=== PATIENT | male | born 1970 | race African-American/Black ===

== ENCOUNTER 2016-12-26 11:19 | Emergency (ER) | payer SELFPAY ==
[~2016-12-26] VITALS: Ht 167.6 cm; Wt 87.0 kg
[2016-12-26 11:20] VITALS: BP 142/86; PULSE 86; RESP 20; TEMP 98.5; O2SAT 97
--- NOTE | 2016-12-26 11:46 | PD ---
HPI . left eye redness and drainage for 1 day Chief Complaint: Eye Problems/Injury Time Seen by Provider: 11:46 Travel History International Travel<30 days: No Contact w/Intl Traveler<30days: No Traveled to known affect area: No History of Present Illness HPI 46-year-old male here with complaints of left eye redness and drainage for 1 day. Patient tells me that his eye is draining some purulent matter. He denies any foreign body sensation or trauma. He denies any eye pain. PFSH Past Medical History Medical History: Denies Significant Hx Social History Alcohol Use: No Tobacco Use: No Substance Use: No Allergies-Medications (Allergen,Severity, Reaction): Coded Allergies: No Known Allergies (Unverified , 12/26/16) Reported Meds & Prescriptions Reported Meds & Active Scripts Active Erythromycin Opth Oint 5 Mg/Gm Oint 1 Applic LEFT EYE BID 5 Days Review of Systems General / Constitutional: No: Fever Eyes: Positive: Drainage, Redness, No: Visual changes HENT: No: Headaches Cardiovascular: No: Chest Pain or Discomfort Respiratory: No: Shortness of Breath Gastrointestinal: No: Abdominal Pain Genitourinary: No: Dysuria Musculoskeletal: No: Pain Skin: No Rash Neurologic: No: Weakness Psychiatric: No: Depression Endocrine: No: Polydipsia Hematologic/Lymphatic: No: Easy Bruising Physical Exam Narrative GENERAL: AAO x 3, no acute distress, Well-nourished, well-developed patient. SKIN: Warm and dry. No visible rashes or bruising. HEAD: Normocephalic and atraumatic. EYES: No scleral icterus. EOM intact, PERRLA positive injection and clear/ slightly purulent drainage of the left eye. Right eye normal. ENT: No nasal drainage noted.. Airway patent. NECK: Supple, trachea midline. No JVD. CARDIOVASCULAR: Regular rate and rhythm without murmurs, gallops, or rubs. RESPIRATORY: Breath sounds equal bilaterally. No accessory muscle use. No rhonchi or rales. GASTROINTESTINAL: Visual inspection normal EXTREMITIES: No cyanosis or edema. BACK: Nontender without obvious deformity. No CVA tenderness. PSYCH: AAO x 3, normal affect. Data Data Last Documented VS Vital Signs Date Time Temp Pulse Resp B/P Pulse Ox O2 Delivery O2 Flow Rate FiO2 12/26/16 11:20 98.5 86 20 142/86 97 Room Air MDM Medical Decision Making Medical Screen Exam Complete: Yes Emergency Medical Condition: Yes Medical Record Reviewed: Yes Differential Diagnosis Conjunctivitis, less likely retinal detachment, less likely acute angle glaucoma Narrative Course This is a 46-year-old male here with complaints of left eye redness and drainage since yesterday. Eye examination was done and this appears to be a conjunctivitis. I will go head and treat with erythromycin ophthalmic ointment. I advised follow-up in 2-3 days with an enterprise security architect for recheck. Diagnosis Primary Impression: Conjunctivitis Qualified Code: H10.32 - Acute bacterial conjunctivitis of left eye Referrals: [facility] Additional Instructions: Please return to emergency department if your symptoms return or worsen. Follow up with your primary care provider. Take medications as prescribed. Please seen enterprise security architect in the next 2-3 days for follow-up.. Med/Other Pt SpecificInfo: Prescription(s) given Scripts Erythromycin Opth Oint 5 Mg/Gm Oint1 Applic LEFT EYE BID 5 Days Ref 0 Prov:Johana Santos DO 12/26/16 Disposition: 01 DISCHARGE HOME Condition: Stable Carlyn Gerard December 26, 2016 11:46
[2016-12-26] MEDS ORDERED: ERYTOIN10 LEFT EYE (11:59)
== END 2016-12-26 12:10 | disposition home or self-care (01) ==
LOC: NEPK 11:19
DX: H10.32 Unspecified acute conjunctivitis, left eye (principal)
CPT/HCPCS: 99282